=== PATIENT | male | born 1975 ===

== ENCOUNTER 2018-11-13 10:05 | Emergency (ER) | payer MEDICAID ==
[~2018-11-13] VITALS: Ht 154.9 cm; Wt 95.3 kg
[2018-11-13 10:22] VITALS: Ht 154.9 cm; Wt 95.3 kg
[2018-11-13 13:32] VITALS: BP 128/74
== END 2018-11-13 13:32 | disposition home or self-care (01) ==
LOC: ED 10:05
DX: G43.909 Migraine, unspecified, not intractable, without status migrainosus (principal)
CPT/HCPCS: J0780